=== PATIENT | male | born 1975 | race Caucasian/White ===

== ENCOUNTER 2024-02-29 12:31 | Emergency (ER) | payer BC ==
[2024-02-29] MEDS: Sodium Chloride 0.9% 10 ML Syringe FLUSH PRN (12:57)
[2024-02-29] MEDS: Ondansetron 4 MG/2 ML SDV IVPUSH ONE (12:57)
[2024-02-29] MEDS: HYDROmorphone 1 MG/ML Syringe IVPUSH ONE ×2 (12:57→13:40)
[2024-02-29 13:11] LABS: BASOPHILS PERCENT AUTO 0.2 % (0.0-1.0); EOSINOPHILS PERCENT AUTO 2.4 % (1.0-3.0); HEMATOCRIT 28.9 % (40.0-54.0); HEMOGLOBIN 9.1 g/dL (14.0-18.0); LYMPHOCYTES PERCENT AUTO 10.7 % (20.5-50.1); MEAN CORPUSCULAR HEMOGLOBIN 29.1 pg (27.0-34.0); MEAN CORPUSCULAR HGB CONC 31.5 g/dL (33.0-35.0); MEAN CORPUSCULAR VOLUME 92.3 fL (80-100); MONOCYTES PERCENT AUTO 7.5 % (2-8); NEUTROPHILS PERCENT AUTO 79.2 % (42.2-75.2); PLATELET COUNT,PLT 348 10^3/uL (150-450); RED BLOOD CELL COUNT 3.13 10^6/uL (4.6-6.2); WHITE BLOOD CELL COUNT,WBC 8.8 10^3/uL (5.0-10.0)
[2024-02-29 13:28] LABS: ALBUMIN 2.8 g/dL (3.4-5.0); ANION GAP 13.1 mEq/L (7-13); BILIRUBIN TOTAL 0.5 mg/dL (0.2-1.0); BUN/CREATININE RATIO 11.4 (No establ ref range); C-REACTIVE PROTEIN 4.11 ng/dL (<=0.50); CALCIUM 8.4 mg/dL (8.5-10.1); CREATININE 1.4 mg/dL (0.70-1.30); EST CRCL DRUG DOSING (CG) 65.9 mL/min; POTASSIUM,K 5.1 mmol/L (3.5-5.1); PROTEIN TOTAL,TP 6.8 g/dL (6.4-8.2)
[2024-02-29 13:31] LABS: A/G RATIO 0.7; LACTIC ACID 1.5 mmol/L (0.4-2.0)
[2024-02-29 13:35] LABS: INR 1.1 (0.9-1.2); PROTHROMBIN TIME 11.1 SEC (9.0-12.0); PTT,PARTIAL THROMBOPLSTIN TIME 25.6 SEC (22.0-34.0)
[2024-02-29] MEDS: Iopamidol 612 MG/ML 100 ML Bottle IVPUSH ONE (13:45)
[2024-02-29] MEDS: Ketamine 500 mg/10 ML MDV IV ONE (15:22)
[2024-02-29] MEDS: fentaNYL 100 MCG/2 ML SDV IVPUSH ONE (16:18)
[2024-02-29] MEDS: Metoclopramide 10 MG/2 ML SDV IVPUSH ONE (16:18)
== END 2024-02-29 16:19 ==
LOC: DL.ED 12:31
DX: N28.89 Other specified disorders of kidney and ureter (principal); N13.30 Unspecified hydronephrosis; Z88.0 Allergy status to penicillin; Z86.16 Personal history of COVID-19
CPT/HCPCS: 36415; 74177; 80053; 82550; 83605; 83615; 85025; 85610; 85730; 86140; 96374; 96375; 96376; 99284; 99285-25; J1170; J2405; J2765; J3010; J3490; Q9967